=== PATIENT | female | born 1995 | race Caucasian/White ===

== ENCOUNTER 2016-11-26 23:46 | Emergency (ER) | payer OTHER ==
[2016-11-27] MEDS ORDERED: ONDANSETRON 4 MG ORAL DISINTEGRATING TAB (S0181) As Ordered ONE (01:29)
--- NOTE | 2016-11-27 02:03 | EDDOCDS ---
Physician Documentation [facility] Name: Joselyn Castro Age: 21 yrs Sex: Female : 1995 Arrival Date: 11/26/2016 Time: 23:46 Bed I5 / M5 Private MD: Other - Complete Info On Cds Disposition: 11/27/16 01:55 Discharged to Home/Self Care. Impression: Vomiting. - Condition is Stable. - Discharge Instructions: Nausea and Vomiting. - Prescriptions for Prilosec 20 mg Oral Capsule - take 1 capsule by ORAL route once daily; 10 capsule. ZOFRAN ODT 4 mg - dissolve 1 tablet by ORAL route 4 times per day As needed do not chew, do not swallow whole; 10 tablet. - Medication Reconciliation, Local Pharmacy Hours form. - Follow up: Angelica Ho [facility]; When: 1 - 2 days; Reason: Recheck today's complaints, Continuance of care. - Problem is new. - Symptoms have improved. - Notes: USE MEDICATION INSTRUCTED, FOLLOW UP WITH YOUR DOCTOR IN 1-2 DAYS, RETURN TO THE ER IF THE SYMPTOMS WORSEN OR BECOME CONCERNING Historical: - Allergies: No known drug Allergies; - Home Meds: 1. none - PMHx: Depression; - PSHx: Shoulder Arthroplasty. Right; - Social history: Smoking status: Patient states was never smoker of tobacco. No barriers to communication noted, The patient speaks fluent Monegasque, Speaks appropriately for age. - Family history: Not pertinent. - : The pt / caregiver states he / she is not on anticoagulants. Home medication list is obtained from the patient. - Exposure Risk Screening:: None identified. 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 7 in. (170.18 cm) (R); Pain 4/10; 11/27 02:00 BP 110 / 58; Pulse 70; Resp 18; Temp 99.0(O); Pulse Ox 99% on R/A; Pain 0/10; cristal 11/26 23:47 Body Mass Index 18.79 (54.43 kg, 170.18 cm) gr2 MDM: 01:26 UCG by Nursing ordered. ck7 01:26 Ondansetron ODT Oral Disintegrating Tablet 4 mg PO once ordered. ck7 01:26 Fluid Challenge ordered. ck7 01:36 Financial registration complete. pm4 01:44 [facility] Payment Agreement was scanned into [employer] and attached to record. pm4 Point of Care Testing: Urine : 01:51 hCG Reading: Negative; Control Reading: Positive; ajs Ranges: Administered Medications: 01:34 Drug: Ondansetron ODT 4 mg [ondansetron 4 mg disintegrating tablet (1 tabs)] Route: PO; cristal Signatures: Marc Dowell, ROBERTO-C RPA-Cck7 Juan Jose SalinasRN RN Hortensia SolaresRN RN nn1 Don Leong, Reg Reg pm4 The chart was reviewed and I authenticate all verbal orders and agree with the evaluation and treatment provided.Attachments: 01:44 [facility] Payment Agreement pm4 MTDD
--- NOTE | 2016-11-27 02:03 | EDDOCDS ---
Nurse's Notes [facility] Name: Joselyn Castro Age: 21 yrs Sex: Female : 1995 Arrival Date: 11/26/2016 Time: 23:46 Bed I5 / M5 Private MD: Other - Complete Info On Cds Diagnosis: Vomiting Presentation: 11/26 23:54 Presenting complaint: Patient states: vomiting since 1600. Reports 5 episodes of nn1 vomiting, last episode on way to ED. States she had fever of 100.0 earlier. Adult Sepsis Screening: The patient does not have new or worsening altered mentation. Patient's respiratory rate is less than 22. Systolic blood pressure is greater than 100. Patient has a qSOFA score of 0- Negative Sepsis Screen. Suicide/Homicide risk assessment- the patient denies having any suicidal and/or homicidal ideations and does not present with any other emotional, behavioral or mental health complaints. 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 Transition of care: patient was not received from another setting of care. 23:54 Acuity: TASNEEM Level 3 nn1 23:54 Method Of Arrival: Walkin/Carried/Asstd nn1 Triage Assessment: 23:56 General: Appears in no apparent distress, comfortable, Behavior is appropriate for age, nn1 cooperative. Pain: Location: abdomen Pain currently is 5 out of 10 on a pain scale. Pain began 1600. HIV screening NA for this visit Offered previously. Neurological: Level of Consciousness is awake, alert, obeys commands. Respiratory: Airway is patent Respiratory effort is even, unlabored, Respiratory pattern is regular, symmetrical. GI: Reports cramping, nausea, vomiting. Derm: Skin is pink, warm & dry. 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 none - PMHx: Depression; - PSHx: Shoulder Arthroplasty. Right; - Social history: Smoking status: Patient states was never smoker of tobacco. No barriers to communication noted, The patient speaks fluent [place], Speaks appropriately for age. - Family history: Not pertinent. - : The pt / caregiver states he / she is not on anticoagulants. Home medication list is obtained from the patient. - Exposure Risk Screening:: None identified. Screenin:37 Screening information is obtained from the patient. Fall risk: No risks identified. jmb Assistance ADL's: requires no assistance with activities of daily living. Abuse/DV Screen: The patient / caregiver reports he/she is: not in a situation that causes fear, pain or injury. Nutritional screening: No deficits noted. Advance Directives: Currently, there is no health care proxy. There is no active DNR order. There is no living will. There is no Power of Fur Coat Sewer. home support is adequate. Assessment: 01:34 General: Appears in no apparent distress, Behavior is appropriate for age, cooperative. jmb Neurological: Level of Consciousness is awake, alert, obeys commands, Oriented to person, place, time, Computer Support Technician are equal bilaterally Speech is normal, Facial symmetry appears normal, Facial symmetry: tongue is midline. Cardiovascular: Capillary refill < 3 seconds Heart tones S1 S2 present Pulses are all present. Respiratory: Airway is patent Respiratory effort is even, unlabored, Respiratory pattern is regular, symmetrical, Breath sounds are clear bilaterally. GI: Abdomen is non- distended Bowel sounds present X 4 quads. Abd is soft X 4 quads. Derm: Skin is pink, warm & dry. Musculoskeletal: Range of motion intact in all extremities. 01:34 General: Patient administered Zofran, after placing Zofran in mouth, patient took 16 oz jmb bottle of water and drank it completely. NO nausea or vomiting noted. . 02:00 General: Patient instructed on discharge instructions. Patient asked if there were any b questions regarding discharge, patient stated no. Patient signed discharge instructions. Patient discharged in stable condition. . Vital Signs: 11/26 23:47 BP 114 / 66; Pulse 73; Resp 18 S; Temp 99.6(O); Pulse Ox 98% on R/A; Weight 54.43 kg gr2 (R); Height 5 ft. 7 in. (170.18 cm) (R); Pain 4/10; 11/27 02:00 BP 110 / 58; Pulse 70; Resp 18; Temp 99.0(O); Pulse Ox 99% on R/A; Pain 0/10; jmb 11/26 23:47 Body Mass Index 18.79 (54.43 kg, 170.18 cm) gr2 Vitals: 11/26 23:47 Log In Time: November 26, 2016 at 23:47. gr2 ED Course: 23:46 Patient visited by Sage Spangler. gr2 23:46 Patient moved to Waiting gr2 23:47 Other - Complete Info On Cds is Private Physician. gr2 23:48 Patient visited by Sage Spangler. gr2 23:48 Patient moved to Pre RCE gr2 23:55 Triage Initiated nn1 02/09 01:15 [facility] ck7 01:15 Sergo Juarez MD is Attending Physician. ck7 01:15 Patient visited by Marc Dowell RPA-C. ck7 01:15 Patient moved to I5 / M5 nn1 01:37 Patient visited by Juan Jose Salinas RN. jmb 01:37 The patient / caregiver is instructed regarding the plan of care and ED course. jmb 01:37 No IV's were initiated during this patient's visit. No procedures done that require jmb assistance. 01:44 [facility] Payment Agreement was scanned into [employer] and attached to record. pm4 01:52 Patient visited by Mi Montoya. ajs 01:55 Angelica oH [facility] is Referral Physician. ck7 Administered Medications: 01:34 Drug: Ondansetron ODT 4 mg [ondansetron 4 mg disintegrating tablet (1 tabs)] Route: PO; jmb Point of Care Testing: Urine : 01:51 hCG Reading: Negative; Control Reading: Positive; ajs Ranges: Order Results: There are currently no results for this order. Outcome: 01:55 Discharge ordered by Provider. ck7 02:00 Discharge Assessment: Patient awake, alert and oriented x 3. No cognitive and/or jmb functional deficits noted. Patient verbalized understanding of disposition instructions. Patient awake and alert. obeys commands, Oriented to person, place and time. Patient verbalized understanding of disposition instructions. Patient has no functional deficits. patient administered narcotics - no. The following High Risk Discharge criteria are identified: None. Discharged to home ambulatory, with friend. Condition: stable Condition: improved. Discharge instructions given to patient, Instructed on discharge instructions, follow up and referral plans. medication usage, Demonstrated understanding of instructions, medications, Pt was receptive of discharge instructions/ teaching. Prescriptions given X 2. No special radiology studies were completed. Property sent home with patient. 02:02 Patient left the ED. cristal Signatures: Mi Montoya Christopher, ROBERTO-C RPA-Cck7 Sage Spangler gr2 Juan Jose Salinas RN RN Hortensia Solares RN RN nn1 Don Leong, Reg Reg pm4 MTDD
--- NOTE | 2016-11-29 03:03 | EDDOCDS ---
Physician Documentation [facility] Name: Joselyn Castro Age: 21 yrs Sex: Female : 1995 Arrival Date: 11/26/2016 Time: 23:46 Bed I5 / M5 Private MD: Other - Complete Info On Cds Disposition: 11/27/16 01:55 Discharged to Home/Self Care. Impression: Vomiting. - Condition is Stable. - Discharge Instructions: Nausea and Vomiting. - Prescriptions for Prilosec 20 mg Oral Capsule - take 1 capsule by ORAL route once daily; 10 capsule. ZOFRAN ODT 4 mg - dissolve 1 tablet by ORAL route 4 times per day As needed do not chew, do not swallow whole; 10 tablet. - Medication Reconciliation, Local Pharmacy Hours form. - Follow up: Angelica Ho [facility]; When: 1 - 2 days; Reason: Recheck today's complaints, Continuance of care. - Problem is new. - Symptoms have improved. - Notes: USE MEDICATION INSTRUCTED, FOLLOW UP WITH YOUR DOCTOR IN 1-2 DAYS, RETURN TO THE ER IF THE SYMPTOMS WORSEN OR BECOME CONCERNING Historical: - Allergies: No known drug Allergies; - Home Meds: 1. none - PMHx: Depression; - PSHx: Shoulder Arthroplasty. Right; - Social history: Smoking status: Patient states was never smoker of tobacco. No barriers to communication noted, The patient speaks fluent Cymro, Speaks appropriately for age. - Family history: Not pertinent. - : The pt / caregiver states he / she is not on anticoagulants. Home medication list is obtained from the patient. - Exposure Risk Screening:: None identified. 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 7 in. (170.18 cm) (R); Pain 4/10; 11/27 02:00 BP 110 / 58; Pulse 70; Resp 18; Temp 99.0(O); Pulse Ox 99% on R/A; Pain 0/10; cristal 11/26 23:47 Body Mass Index 18.79 (54.43 kg, 170.18 cm) gr2 MDM: 01:26 UCG by Nursing ordered. ck7 01:26 Ondansetron ODT Oral Disintegrating Tablet 4 mg PO once ordered. ck7 01:26 Fluid Challenge ordered. ck7 01:36 Financial registration complete. pm4 01:44 [facility] Payment Agreement was scanned into [employer] and attached to record. pm4 10:14 T-Sheet-- Draft Copy was scanned into [employer] and attached to record. chucho Point of Care Testing: Urine : 01:51 hCG Reading: Negative; Control Reading: Positive; ajs Ranges: Administered Medications: 01:34 Drug: Ondansetron ODT 4 mg [ondansetron 4 mg disintegrating tablet (1 tabs)] Route: PO; cristal Signatures: Kimi Bolaños, Reg Reg gb Marc Dowell, EVARISTOC RPA-Cck7 Juan Jose SalinasRN RN Hortensia Solares,RN RN nn1 Don Leong, Reg Reg pm4 The chart was reviewed and I authenticate all verbal orders and agree with the evaluation and treatment provided.Attachments: 01:44 [facility] Payment Agreement pm4 10:14 T-Sheet-- Draft Copy gb Chart Complete MTDD
--- NOTE | 2016-11-29 03:03 | EDDOCDS ---
Nurse's Notes [facility] Name: Joselyn Castro Age: 21 yrs Sex: Female : 1995 Arrival Date: 11/26/2016 Time: 23:46 Bed I5 / M5 Private MD: Other - Complete Info On Cds Diagnosis: Vomiting Presentation: 11/26 23:54 Presenting complaint: Patient states: vomiting since 1600. Reports 5 episodes of nn1 vomiting, last episode on way to ED. States she had fever of 100.0 earlier. Adult Sepsis Screening: The patient does not have new or worsening altered mentation. Patient's respiratory rate is less than 22. Systolic blood pressure is greater than 100. Patient has a qSOFA score of 0- Negative Sepsis Screen. Suicide/Homicide risk assessment- the patient denies having any suicidal and/or homicidal ideations and does not present with any other emotional, behavioral or mental health complaints. 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 Transition of care: patient was not received from another setting of care. 23:54 Acuity: TASNEEM Level 3 nn1 23:54 Method Of Arrival: Walkin/Carried/Asstd nn1 Triage Assessment: 23:56 General: Appears in no apparent distress, comfortable, Behavior is appropriate for age, nn1 cooperative. Pain: Location: abdomen Pain currently is 5 out of 10 on a pain scale. Pain began 1600. HIV screening NA for this visit Offered previously. Neurological: Level of Consciousness is awake, alert, obeys commands. Respiratory: Airway is patent Respiratory effort is even, unlabored, Respiratory pattern is regular, symmetrical. GI: Reports cramping, nausea, vomiting. Derm: Skin is pink, warm & dry. 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 none - PMHx: Depression; - PSHx: Shoulder Arthroplasty. Right; - Social history: Smoking status: Patient states was never smoker of tobacco. No barriers to communication noted, The patient speaks fluent [place]ese, Speaks appropriately for age. - Family history: Not pertinent. - : The pt / caregiver states he / she is not on anticoagulants. Home medication list is obtained from the patient. - Exposure Risk Screening:: None identified. Screenin:37 Screening information is obtained from the patient. Fall risk: No risks identified. jmb Assistance ADL's: requires no assistance with activities of daily living. Abuse/DV Screen: The patient / caregiver reports he/she is: not in a situation that causes fear, pain or injury. Nutritional screening: No deficits noted. Advance Directives: Currently, there is no health care proxy. There is no active DNR order. There is no living will. There is no Power of Director Advertising. home support is adequate. Assessment: 01:34 General: Appears in no apparent distress, Behavior is appropriate for age, cooperative. 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 Cardiovascular: Capillary refill < 3 seconds Heart tones S1 S2 present Pulses are all present. Respiratory: Airway is patent Respiratory effort is even, unlabored, Respiratory pattern is regular, symmetrical, Breath sounds are clear bilaterally. GI: Abdomen is non- distended Bowel sounds present X 4 quads. Abd is soft X 4 quads. Derm: Skin is pink, warm & dry. Musculoskeletal: Range of motion intact in all extremities. 01:34 General: Patient administered Zofran, after placing Zofran in mouth, patient took 16 oz jmb bottle of water and drank it completely. NO nausea or vomiting noted. . 02:00 General: Patient instructed on discharge instructions. Patient asked if there were any b questions regarding discharge, patient stated no. Patient signed discharge instructions. Patient discharged in stable condition. . Vital Signs: 11/26 23:47 BP 114 / 66; Pulse 73; Resp 18 S; Temp 99.6(O); Pulse Ox 98% on R/A; Weight 54.43 kg gr2 (R); Height 5 ft. 7 in. (170.18 cm) (R); Pain 4/10; 11/27 02:00 BP 110 / 58; Pulse 70; Resp 18; Temp 99.0(O); Pulse Ox 99% on R/A; Pain 0/10; jmb 11/26 23:47 Body Mass Index 18.79 (54.43 kg, 170.18 cm) gr2 Vitals: 11/26 23:47 Log In Time: November 26, 2016 at 23:47. gr2 ED Course: 23:46 Patient visited by Sage Spangler. gr2 23:46 Patient moved to Waiting gr2 23:47 Other - Complete Info On Cds is Private Physician. gr2 23:48 Patient visited by Sage Spangler. gr2 23:48 Patient moved to Pre RCE gr2 23:55 Triage Initiated nn1 02/09 01:15 [facility] ck7 01:15 Sergo Juarez MD is Attending Physician. ck7 01:15 Patient visited by Marc Dowell RPA-C. ck7 01:15 Patient moved to I5 / M5 nn1 01:37 Patient visited by Juan Jose Salinas RN. jmb 01:37 The patient / caregiver is instructed regarding the plan of care and ED course. jmb 01:37 No IV's were initiated during this patient's visit. No procedures done that require jmb assistance. 01:44 [facility] Payment Agreement was scanned into [employer] and attached to record. pm4 01:52 Patient visited by Mi Montoya. ajs 01:55 Angelica Ho [facility] is Referral Physician. ck7 10:14 T-Sheet-- Draft Copy was scanned into [employer] and attached to record. gb Administered Medications: 01:34 Drug: Ondansetron ODT 4 mg [ondansetron 4 mg disintegrating tablet (1 tabs)] Route: PO; jmb Point of Care Testing: Urine : 01:51 hCG Reading: Negative; Control Reading: Positive; ajs Ranges: Order Results: There are currently no results for this order. Outcome: 01:55 Discharge ordered by Provider. ck7 02:00 Discharge Assessment: Patient awake, alert and oriented x 3. No cognitive and/or jmb functional deficits noted. Patient verbalized understanding of disposition instructions. Patient awake and alert. obeys commands, Oriented to person, place and time. Patient verbalized understanding of disposition instructions. Patient has no functional deficits. patient administered narcotics - no. The following High Risk Discharge criteria are identified: None. Discharged to home ambulatory, with friend. Condition: stable Condition: improved. Discharge instructions given to patient, Instructed on discharge instructions, follow up and referral plans. medication usage, Demonstrated understanding of instructions, medications, Pt was receptive of discharge instructions/ teaching. Prescriptions given X 2. No special radiology studies were completed. Property sent home with patient. 02:02 Patient left the ED. cristal Signatures: Kimi Bolaños, Reg Reg gb Mi Montoya Christopher, RPA-C RPA-Cck7 Sage Spangler gr2 Juan Jose Salinas,RN RN Hortensia SolaresRN RN nn1 Don Leong, Reg Reg pm4 Chart Complete MTDD
--- NOTE | 2016-11-29 03:03 | EDDOCDS ---
Physician Documentation Name: Joselyn Castro Age: 21 yrs Sex: Female : 1995 Arrival Date: 11/26/2016 Time: 23:46 Bed I5 / M5 Private MD: Other - Complete Info On Cds Disposition: 11/27/16 01:55 Discharged to Home/Self Care. Impression: Vomiting. - Condition is Stable. - Discharge Instructions: Nausea and Vomiting. - Prescriptions for Prilosec 20 mg Oral Capsule - take 1 capsule by ORAL route once daily; 10 capsule. ZOFRAN ODT 4 mg - dissolve 1 tablet by ORAL route 4 times per day As needed do not chew, do not swallow whole; 10 tablet. - Medication Reconciliation, Local Pharmacy Hours form. - Follow up: Angelica Ho [facility]; When: 1 - 2 days; Reason: Recheck today's complaints, Continuance of care. - Problem is new. - Symptoms have improved. - Notes: USE MEDICATION INSTRUCTED, FOLLOW UP WITH YOUR DOCTOR IN 1-2 DAYS, RETURN TO THE ER IF THE SYMPTOMS WORSEN OR BECOME CONCERNING Historical: - Allergies: No known drug Allergies; - Home Meds: 1. none - PMHx: Depression; - PSHx: Shoulder Arthroplasty. Right; - Social history: Smoking status: Patient states was never smoker of tobacco. No barriers to communication noted, The patient speaks fluent Tuvaluan, Speaks appropriately for age. - Family history: Not pertinent. - : The pt / caregiver states he / she is not on anticoagulants. Home medication list is obtained from the patient. - Exposure Risk Screening:: None identified. 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 7 in. (170.18 cm) (R); Pain 4/10; 11/27 02:00 BP 110 / 58; Pulse 70; Resp 18; Temp 99.0(O); Pulse Ox 99% on R/A; Pain 0/10; cristal 11/26 23:47 Body Mass Index 18.79 (54.43 kg, 170.18 cm) gr2 MDM: 01:26 UCG by Nursing ordered. ck7 01:26 Ondansetron ODT Oral Disintegrating Tablet 4 mg PO once ordered. ck7 01:26 Fluid Challenge ordered. ck7 01:36 Financial registration complete. pm4 01:44 [facility] Payment Agreement was scanned into [employer] and attached to record. pm4 10:14 T-Sheet-- Draft Copy was scanned into [employer] and attached to record. chucho Point of Care Testing: Urine : 01:51 hCG Reading: Negative; Control Reading: Positive; ajs Ranges: Administered Medications: 01:34 Drug: Ondansetron ODT 4 mg [ondansetron 4 mg disintegrating tablet (1 tabs)] Route: PO; cristal Signatures: Kimi Bolaños, Reg Reg gb Marc Dowell, EVARISTOC RPA-Cck7 Juan Jose SalinasRN RN Hortensia Solares,RN RN nn1 Don Leong, Reg Reg pm4 The chart was reviewed and I authenticate all verbal orders and agree with the evaluation and treatment provided.Attachments: 01:44 [facility] Payment Agreement pm4 10:14 T-Sheet-- Draft Copy gb Chart Complete MTDD
== END 2016-11-27 02:02 | disposition home or self-care (01) ==
LOC: M ED 23:46
DX: R11.10 Vomiting, unspecified (principal); F32.9 Major depressive disorder, single episode, unspecified

== ENCOUNTER → 2017-05-21 | Outpatient (CLI) | payer OTHER ==
--- NOTE | 2017-05-22 16:50 | ECHO ---
DATE OF PROCEDURE: 05/21/2017 DATE OF : 1995 AGE: 21 GENDER: Female HEIGHT: 67 inches WEIGHT: 117 pounds BODY SURFACE AREA: 1.61 meters squared OUTPATIENT REFERRING PHYSICIAN: Taina Wayne INDICATION: Abnormal EKG. MEASUREMENTS: 2D Measurements: RV: 2.9 cm LV: 4.6 cm Septum: 0.8 cm Posterior wall: 0.8 cm Aortic root: 2.6 cm LA: 3.0 cm LVEF: 65% DOPPLER MEASUREMENTS: AV: 1.2 m/s LVOT: 0.8 m/s LVOT diameter: 2.1 cm MV-E: 93, A: 48, EA ratio: 1.9 Early mitral deceleration time: 208 ms E-prime: 12, A prime: 8, E/E prime ratio: 8 PV: 0.8 m/s Pulmonary artery acceleration time: 175 ms RVSP: 23 mmHg IVC: 1.5 cm COMMENTS: Normal sinus rhythm without intraventricular conduction disturbance. Normal cardiac chamber sizes, wall thickness and wall motion. Normal appearing mitral valvular apparatus and leaflet excursion with no posterior systolic buckling. Three equal size aortic cusps of normal thickness and cusp separation. Normal aortic root size. No apparent intracardiac mass or pericardial effusion. Color flow Doppler study taken from the parasternal and apical projections showed very mild mitral, trace tricuspid but no aortic insufficiency. Guided continuous wave Doppler of her aortic valve showed a normal peak systolic velocity against LV outflow tract obstruction. Pulsed and continuous wave Doppler of her LV inflow tract taken from the apical four-chamber projection showed normal diastolic filling velocities against mitral stenosis. The filling pattern and her estimated mean left atrial pressure were within normal limits. Pulsed and continuous wave Doppler of her pulmonary trunk showed a normal peak systolic velocity against RV outflow tract obstruction. Her pulmonary artery acceleration time was normal against an elevated pulmonary vascular resistance. Guided continuous wave Doppler of her tricuspid valve allowed our estimation of her right ventricular systolic pressure (within normal limits). Normal IVC size and collapse against an elevated central venous pressure. CONCLUSIONS: Normal appearing echocardiogram/Doppler study.
== END ==
LOC: M CARPUL 08:12
PROVIDERS: ATTEND Physician Assistant
DX: R94.31 Abnormal electrocardiogram [ECG] [EKG] (principal)

== ENCOUNTER → 2017-12-21 | Outpatient (CLI) | payer OTHER | LOC: M RAD 10:37 | DX: R51 Headache (principal) | CPT/HCPCS: 70551 ==

== ENCOUNTER → 2018-01-24 | Outpatient (CLI) | payer OTHER | LOC: M LDO 17:45 | DX: O26.892 Other specified pregnancy related conditions, second trimester (principal); Z3A.19 19 weeks gestation of pregnancy; Z98.890 Other specified postprocedural states ==

== ENCOUNTER 2018-06-02 01:01 | Inpatient (IN) | payer OTHER ==
[2018-06-02] MEDS ORDERED: LR 1,000 ML IV (02:00)
[2018-06-02 02:16] LABS: APPEARANCE, URINE CLOUDY (CLEAR); BACTERIA, URINE AUTO 1+ (NEGATIVE); BILIRUBIN, URINE AUTO NEGATIVE (NEGATIVE); BLOOD, URINE BLOOD 3+ (NEGATIVE); COLOR, URINE YELLOW (YELLOW); GLUCOSE, URINE (UA) AUTO NEGATIVE (NEGATIVE); KETONE, URINE AUTO NEGATIVE (NEGATIVE); LEUKOCYTE ESTERASE, URINE AUTO 3+ (NEGATIVE); MUCUS, URINE SMALL (NEGATIVE); NITRITE, URINE AUTO NEGATIVE (NEGATIVE); PROTEIN, URINE AUTO NEGATIVE (NEGATIVE); RBC, URINE AUTO 50 /HPF (0-3); SPECIFIC GRAVITY URINE AUTO 1.014 (1.002-1.035); SQUAMOUS EPITHELIAL CELL UR AU 4 /HPF (0-6); WBC, URINE AUTO 119 /HPF (0-3)
[2018-06-02] MEDS: LACTATED RINGER'S 1000 ML IV (02:45)
[2018-06-02] MEDS: ceFAZolin SOD 1 GM in D5W MINI-BAG PLUS 50 ML IV ×3 (02:45→18:37)
[2018-06-02] MEDS: BUTORPHANOL 2 MG/ML INJ (J0595) IV (03:07)
[2018-06-02] MEDS: PROMETHAZINE INJ 25 MG/ML VIAL (J2550) IV (03:08)
[2018-06-02] MEDS ORDERED: NALOXONE INJ 0.4 MG/1 ML VIAL (J2310) As Ordered (03:52)
[2018-06-02] MEDS ORDERED: OXYTOCIN 30 UNITS IN 0.9% NaCl 500ML IV BAG (J2590) As Ordered (03:53)
[2018-06-02] MEDS ORDERED: OXYTOCIN DRIP 30 UNITS in APPROPRIATE DILUENT 1 EA IV (04:43)
[2018-06-02] MEDS ORDERED: ACETAMINOPHEN 500 MG TAB PO (04:45)
[2018-06-02] MEDS ORDERED: DIBUCAINE 1% OINTMENT 30GM TOP (04:45)
[2018-06-02] MEDS ORDERED: DOCUSATE SODIUM 100 MG CAP PO (04:45)
[2018-06-02] MEDS ORDERED: MEASLES,MUMPS,RUBELLA VACCINE INJ (MMR-II) (90707) SC (04:45)
[2018-06-02] MEDS ORDERED: RHOGAM 300 MCG (1500 IU) INJ (J2790) IM (04:45)
[2018-06-02] MEDS ORDERED: MOM 30ML SUSPENSION UDC PO (04:45)
[2018-06-02] MEDS ORDERED: ANUSOL HC CREAM 30GM TOP (04:45)
[2018-06-02] MEDS ORDERED: METHYLERGONOVINE MALEATE 0.2 MG TAB PO (04:45)
[2018-06-02] MEDS ORDERED: LACTATED RINGER'S 1000 ML IV (04:45)
[2018-06-02] MEDS ORDERED: IBUPROFEN 800 MG TAB PO (04:45)
[2018-06-02] MEDS ORDERED: OXYTOCIN INJ 10 UNITS/ML VIAL (J2590) IV (04:45)
[2018-06-02 05:40] LABS: HEMATOCRIT 31.7 % (36.0-47.0); HEMOGLOBIN 10.9 g/dl (12.0-15.5); MEAN CORPUSCULAR HEMOGLOBIN 31.6 pg (27.0-33.0); MEAN CORPUSCULAR HGB CONC 34.4 g/dl (32.0-36.5); MEAN CORPUSCULAR VOLUME 91.9 fl (80.0-96.0); PLATELET COUNT, AUTOMATED 198 10^3/uL (150-450); RED BLOOD COUNT 3.45 10^6/uL (4.00-5.40); RED CELL DISTRIBUTION WIDTH 13.1 % (11.5-14.5); WHITE BLOOD COUNT 18.6 10^3/uL (4.0-10.0)
[2018-06-02] MEDS: PRENATAL VITAMINS CHEWABLE TABLET PO (07:45)
[2018-06-03] MEDS: ceFAZolin SOD 1 GM in D5W MINI-BAG PLUS 50 ML IV ×3 (03:30→18:29)
[2018-06-03 06:53] LABS: HEMATOCRIT 32.3 % (36.0-47.0); MEAN CORPUSCULAR HEMOGLOBIN 31.4 pg (27.0-33.0); MEAN CORPUSCULAR HGB CONC 34.1 g/dl (32.0-36.5); MEAN CORPUSCULAR VOLUME 92.3 fl (80.0-96.0); PLATELET COUNT, AUTOMATED 179 10^3/uL (150-450); RED CELL DISTRIBUTION WIDTH 13.2 % (11.5-14.5); WHITE BLOOD COUNT 12.7 10^3/uL (4.0-10.0)
[2018-06-03] MEDS: PRENATAL VITAMINS CHEWABLE TABLET PO (08:15)
[2018-06-03] MEDS ORDERED: OXYTOCIN INJ 10 UNITS/ML VIAL (J2590) As Ordered (17:59)
[2018-06-04] MEDS: ceFAZolin SOD 1 GM in D5W MINI-BAG PLUS 50 ML IV (03:00)
[2018-06-04] MEDS: PRENATAL VITAMINS CHEWABLE TABLET PO (10:27)
[2018-06-04] MEDS: CEPHALEXIN 500 MG CAP PO (10:28)
== END 2018-06-04 14:40 | disposition home or self-care (01) | DRG 775 ==
LOC: M LDO 01:01 → M LDI 03:34 → M OBS 07:03
PROC: 10E0XZZ Delivery of Products of Conception, External Approach (ICD-10-PCS; principal; 2018-06-02)
DX: O62.3 Precipitate labor (principal); O23.43 Unspecified infection of urinary tract in pregnancy, third trimester; Z3A.38 38 weeks gestation of pregnancy; O69.89X0 Labor and delivery complicated by other cord complications, not applicable or unspecified; B96.20 Unspecified Escherichia coli [E. coli] as the cause of diseases classified elsewhere; Z37.0 Single live birth

== ENCOUNTER 2018-08-17 05:48 | Day surgery (SDC) | payer OTHER ==
[2018-08-17] MEDS ORDERED: LIDOCAINE 1% MDV 20ML VIAL SQ (06:00)
[2018-08-17 06:35] LABS: HEMATOCRIT 39.7 % (36.0-47.0); HEMOGLOBIN 13.2 g/dl (12.0-15.5); MEAN CORPUSCULAR HEMOGLOBIN 30.2 pg (27.0-33.0); MEAN CORPUSCULAR HGB CONC 33.2 g/dl (32.0-36.5); MEAN CORPUSCULAR VOLUME 90.8 fl (80.0-96.0); PLATELET COUNT, AUTOMATED 289 10^3/uL (150-450); RED BLOOD COUNT 4.37 10^6/uL (4.00-5.40); RED CELL DISTRIBUTION WIDTH 11.9 % (11.5-14.5); WHITE BLOOD COUNT 7.5 10^3/uL (4.0-10.0)
[2018-08-17] MEDS: LR 1,000 ML IV (06:39)
[2018-08-17 06:47] LABS: CONTROL LINE HCG INT CTR LINE PRESENT; HCG, SERUM QUALITATIVE NEGATIVE (NEGATIVE)
[2018-08-17] MEDS ORDERED: fentaNYL 100 MCG/2 ML INJECTION (J3010) As Ordered (07:00)
[2018-08-17] MEDS ORDERED: MIDAZOLAM INJ 2 MG/2 ML VIAL (J2250) As Ordered (07:00)
[2018-08-17] MEDS ORDERED: PROPOFOL 200 MG/20 ML VIAL As Ordered (07:00)
[2018-08-17] MEDS ORDERED: dexameTHASONE 4 MG/ML 1ML VIAL (J1100) As Ordered ×2 (07:00)
[2018-08-17] MEDS ORDERED: ONDANSETRON 4MG/2ML VIAL (J2405) As Ordered (07:00)
[2018-08-17] MEDS ORDERED: LIDOCAINE 2% INJ 100 MG/5 ML SDV (FOR ANES.) As Ordered (07:00)
[2018-08-17] MEDS ORDERED: KETOROLAC 60 MG/2 ML VIAL (J1885) As Ordered (07:00)
[2018-08-17] MEDS: IODINE STRONG SOLN 15 ML BTL As Ordered (08:35)
[2018-08-17] MEDS: LIDOCAINE W/EPINEPHRINE 1% 20ML VIAL As Ordered (08:46)
== END 2018-08-17 10:01 | disposition home or self-care (01) ==
LOC: M SDC 05:48
DX: D06.9 Carcinoma in situ of cervix, unspecified (principal); Z91.018 Allergy to other foods
CPT/HCPCS: 57522

== ENCOUNTER 2019-08-05 06:26 | Outpatient (CLI) | payer OTHER ==
[~2019-08-05] VITALS: Ht 172.7 cm; Wt 62.3 kg
[~2019-08-05 06:26] MED LIST: COLA100C5 PO; DIBU1OIN TOP; IBUP-1114 PO; MAPA500T2 PO; MECL1CHW PO; PRENTAB9 PO; UNIS25TA3 PO
[2019-08-05 06:43] VITALS: BP 121/73
[2019-08-05] MEDS ORDERED: BUTA-198 PO (06:47)
[2019-08-05] MEDS ORDERED: BETAMETHASONE SOLUSPAN 6MG/ML INJ 5ML (J0702) IM ONE (07:15)
--- NOTE | 2019-08-05 08:00 | IPNPDOC ---
Text Note Date of Service The patient was seen on 08/05/19. NOTE Patient is a 23 yo @ 30+5wks gestation with history of shortened cervix presented to l&d with spotting on wipe that started this AM. no recent coitus. she is on daily vaginal progesterone suppository. she has not used it for the last couple days due to vaginal irritation. denies abnormal vaginal discharge. vitals:normal NAD ABD: gravid, soft, nt le: no edema/erythema/tenderness speculum exam: brown discharge, no active bleeding cervix visually 1-2cm, thin with bulging bag. a/p patient is 30+5wks with cervical insufficiency. discuss with patient regarding concern for possible progression to labor and delivery. Baby needs level III NICU for optimal care. Recommend transferring to [facility] for higher level of care. Risks of possible delivery during transport discussed with patient. patient expresses understanding and desires to move forward with transport. Report given to Dr. Alvarado, accepting physician at [facility]. DO Bri VS,Luly, I+O VS, Luly, I+O Vital Signs Date Time Temp Pulse Resp B/P (MAP) Pulse Ox O2 Delivery O2 Flow Rate FiO2 08/05/19 06:43 98.2 81 18 121/73 (89) CHRISTOPHER PARISI DO Aug 05, 2019 08:00
== END 2019-08-05 08:30 | disposition short-term general hospital (02) ==
LOC: M LDO 06:26
PROVIDERS: ATTEND Obstetrics & Gynecology
DX: O26.853 Spotting complicating pregnancy, third trimester (principal); O26.873 Cervical shortening, third trimester; Z3A.30 30 weeks gestation of pregnancy
CPT/HCPCS: 59025; 96372; G0378; G0463; J0702

== ENCOUNTER 2019-08-10 12:01 | Inpatient (IN) | payer OTHER ==
[~2019-08-10] VITALS: Ht 170.2 cm; Wt 59.3 kg
[~2019-08-10 12:01] MED LIST changes: +BUTA-198 PO
[2019-08-10] MEDS ORDERED: OXYC-517 PO (12:16)
[2019-08-10] MEDS ORDERED: ACET1TAB55 PO (12:16)
[2019-08-10] MEDS ORDERED: ONDANSETRON 4MG/2ML VIAL (J2405) IV ONE (12:30)
[2019-08-10] MEDS ORDERED: MORPHINE 4 MG/ML 1ML VIAL/SYRINGE (J2270) IV ONE (12:30)
[2019-08-10] MEDS ORDERED: NS 1,000 ML IV ONE (12:30)
[2019-08-10 13:05] LABS: BASO # 0.1 10^3/uL (0.0-0.2); BASO % 0.7 % (0.0-1.0); EOS # 0.1 10^3/uL (0.0-0.5); EOS % 1.2 % (0.0-3.0); HEMOGLOBIN 12.3 g/dl (12.0-15.5); LYMPH # 0.7 10^3/uL (1.5-5.0); LYMPH % 7.8 % (24.0-44.0); MEAN CORPUSCULAR HEMOGLOBIN 31.4 pg (27.0-33.0); MEAN CORPUSCULAR HGB CONC 34.2 g/dl (32.0-36.5); MEAN CORPUSCULAR VOLUME 91.8 fl (80.0-96.0); MONO # 1.2 10^3/uL (0.0-0.8); NEUTROPHILS # 7.2 10^3/uL (1.5-8.5); NEUTROPHILS % 75.6 % (36.0-66.0); PLATELET COUNT, AUTOMATED 427 10^3/uL (150-450); RED BLOOD COUNT 3.92 10^6/uL (4.00-5.40); WHITE BLOOD COUNT 9.5 10^3/uL (4.0-10.0)
[2019-08-10 13:12] LABS: ALBUMIN 2.3 GM/DL (3.2-5.2); ALT/SGPT 18 U/L (12-78); BILIRUBIN,DIRECT 0.2 MG/DL (0.0-0.2); BILIRUBIN,TOTAL 0.5 MG/DL (0.2-1.0); BLOOD UREA NITROGEN 11 MG/DL (7-18); CALCIUM LEVEL 8.3 MG/DL (8.5-10.1); CARBON DIOXIDE LEVEL 20 MEQ/L (21-32); CHLORIDE LEVEL 108 MEQ/L (98-107); CREATININE FOR GFR 0.52 MG/DL (0.55-1.30); GLOMERULAR FILTRATION RATE > 60.0 (>60); GLUCOSE, FASTING 107 MG/DL (70-100); LIPASE 640 U/L (73-393); SODIUM LEVEL 138 MEQ/L (136-145)
[2019-08-10] MEDS ORDERED: ISOVUE-370 76% 100ML VIAL (Q9967) As Ordered ONE (13:30)
--- NOTE | 2019-08-10 15:20 | REP ---
CT ABDOMEN AND PELVIS WITH IV CONTRAST: TECHNIQUE: Axial contrast enhanced images from the lung bases to the pubic symphysis using 100 mL Isovue 370 intravenous contrast material with multiplanar reformations. Visualized lung bases demonstrate mild bibasilar atelectatic change. The liver, spleen, adrenals, pancreas and kidneys are unremarkable. There is no abdominal aortic aneurysm. There is no adenopathy. There is diffuse distention of large and small bowel, filled with air and fluid, most consistent with a generalized ileus. There is mild diffuse free fluid throughout the abdomen and pelvis. No bowel thickening is seen. Uterus is enlarged and heterogeneous, status post section four days ago. Mild normal amount of postsurgical air is seen in the anterior wall of the pelvis and anterior to the bladder and uterus. The urinary bladder is not well distended and not well evaluated. IMPRESSION: Very mild bibasilar atelectatic changes. Diffuse small and large bowel distention compatible with generalized ileus. Mild diffuse free fluid throughout the abdomen and pelvis. There is a normal amount of postsurgical air in the anterior pelvic wall soft tissues and also anterior to the uterus and bladder. Electronically Signed by Dimas Parra MD 08/12/2019 12:55 A
[2019-08-10] MEDS ORDERED: METOCLOPRAMIDE INJ 10MG/2ML VIAL (J2765) IV PRN (15:30)
[2019-08-10 15:58] LABS: AMYLASE 237 U/L (25-115)
[2019-08-10] MEDS ORDERED: ACETAMINOPHEN *IV* 1,000 MG in IV 1 EA IV ONE (16:00)
[2019-08-10] MEDS ORDERED: BISACODYL ENEMA 10 MG/30 ML PR ONE (16:00)
[2019-08-10] MEDS ORDERED: LR 1,000 ML IV ONE (16:00)
--- NOTE | 2019-08-10 16:18 | HPEPDOC ---
General Date of Admission Aug 10, 2019 at 14:51 Date of Service: Aug 10, 2019 Attending Physician: CHRISTOPHER PARISI DO Chief Complaint The patient is a 23-year-old s/p PLTCD on POD #4 presents to ED with concern for obstipation since surgery and po intolerance since this AM. Patient report having abdominal discomfort and pain that is worsening. This morning she tried to drink water and had emesis. She has not been having an appetite since her section. She has not passed gas since after surgery. Last BM was 6 days ago. She usually have BM daily. denies fever/hdez. She is able to urinate without problem. Patient has been taking tylenol and oxycodone for pain. She has allergy to ibuprofen. Baby currently in NICU at [facility] for prematurity. Source: Patient Exam Limitations: No limitations Home Medications Scheduled No.137/Iron/Folic Acd ( Vitamin Tablet) 1 Tab Tab, 1 TAB PO DAILY, (Reported) Scheduled PRN Acetaminophen (Acetaminophen) 325 Mg Tablet, 650 MG PO Q6H PRN for PAIN, (Reported) Butalb/Acetaminophen/Caffeine (Hqgtuy-Txixzgqb-Vbyq 50-325-40) 1 Each Tablet, 1 TAB PO PRN PRN for HEADACHE, (Reported) Oxycodone HCl (Oxycodone HCl) 5 Mg Tablet, 5 MG PO Q4H PRN for PAIN, (Reported) Allergies Coded Allergies: ibuprofen (Verified Allergy, Unknown, FACIAL SWELLING, 08/10/19) onion (Verified Allergy, Unknown, RASH, 08/10/19) Past Medical History Medical History denies Surgical History shoulder surgery, LEEP, section Social History * Smoker: Denies Alcohol: Denies Drugs: denies Psychosocial History: No pertinent psych hx A-FIB/CHADSVASC A-FIB History Current/History of A-Fib/PAF?: No Current PO Anticoag Therapy: No Review of Systems Gastrointestinal: Reports: Nausea, Vomiting, Abdominal Pain, Constipation Physical Examination General Exam: Positive: Alert, No Acute Distress ENT Exam: Positive: Atraumatic Neck Exam: Positive: Supple Chest Exam: Positive: Clear to auscultation, Normal air movement; Negative: Rales, Rhonchi, Wheezing, Diminished, Other Heart Exam: Positive: Rate Normal, Normal S1, Normal S2; Negative: Tachycardic, Bradycardic, Regular Rhythm, Irregular Rhythm, Gallops , Murmurs, Rubs, Other Abdomen Exam: Positive: BS Hypoactive (distended, tympanic, diffuse tender to palpation, +BS, pfannenstiel incision intact with basilia, no erythema/edema) Extremity Exam: Positive: Normal pulses; Negative: Clubbing, Cyanosis, Tenderness, Swelling, Other Vital Signs Vital Signs Date Time Temp Pulse Resp B/P (MAP) Pulse Ox O2 Delivery O2 Flow Rate FiO2 08/10/19 15:00 98.0 85 18 118/76 (90) 99 08/10/19 13:18 Room Air Laboratory Data Labs 24H Laboratory Tests 2 08/10/19 12:28: Immature Granulocyte % (Auto) 1.7, Neutrophils (%) (Auto) 75.6H, Lymphocytes (%) (Auto) 7.8L, Monocytes (%) (Auto) 13.0H, Eosinophils (%) (Auto) 1.2, Basophils (%) (Auto) 0.7, Neutrophils # (Auto) 7.2, Lymphocytes # (Auto) 0.7L, Monocytes # (Auto) 1.2H, Eosinophils # (Auto) 0.1, Basophils # (Auto) 0.1, Nucleated Red Blood Cells % (auto) 0.0, Anion Gap 10, Glomerular Filtration Rate > 60.0, Calcium Level 8.3L, Total Bilirubin 0.5, Direct Bilirubin 0.2, Aspartate Amino Transf (AST/SGOT) 8, Alanine Aminotransferase (ALT/SGPT) 18, Alkaline Phosphatase 177H, Total Protein 6.0L, Albumin 2.3L, Albumin/Globulin Ratio 0.62L, Lipase 640H 08/10/19 12:43: Lactic Acid Level 0.7 08/10/19 14:36: Urine Color YELLOW, Urine Appearance CLEAR, Urine pH 6.0, Urine Specific [place] >1.060H, Urine Protein 2+H, Urine Glucose (UA) NEGATIVE, Urine Ketones 2+H, Urine Blood 2+H, Urine Nitrite NEGATIVE, Urine Bilirubin NEGATIVE, Urine Urobilinogen 0.2, Urine Leukocyte Esterase TRACEH, Urine WBC (Auto) 14H, Urine RBC (Auto) 17H, Urine Hyaline Casts (Auto) 0, Urine Bacteria (Auto) NEGATIVE, Urine Squamous Epithelial Cells 4, Urine Amorphous Sediment SMALLH, Urine Mucus (Auto) SMALL, Urine Sperm (Auto) CBC/BMP Laboratory Tests 08/10/19 12:28 Microbiology Microbiology 08/10/19 Urine Culture, Received Pending 08/10/19 Blood Culture, Received Pending 08/10/19 Blood Culture, Received Pending RAD Interpretation STUDY: ct abdomen Rad Actions: Report Reviewed Assessment/Plan patient is a 23 yo POD #4 with s/s concerning for ileus. noted elevated lipase though CT scan showed normal pancreas and gallbladder. Admit to [facility] for presumed post operative ileus and obstipation. NPO, NG tube if persistent emesis or severe abdominal discomfort from distension bolus 1L LR then 125cc/hr maintenance while npo acetaminophen IV for pain management reglan prn emesis enema pr to help with constipation get amylase today repeat labs in AM encourage ambulation SCDs while in bed reassess to transition to clears in AM. DO Bri Plan / VTE VTE Prophylaxis Ordered?: Yes VTE Exclusion Pharmacological: At Low Risk for VTE Plan IVF: Initiate Diet: Make NPO Activity: Continue Current, Encourage Ambulation Medications: Change to IV Diagnostics: Check Labs (amylase), Repeat Labs in AM Anticipated Discharge: Home CHRISTOPHER PARISI DO Aug 10, 2019 16:18
[2019-08-10 17:20] VITALS: BP 117/79
[2019-08-10] MEDS ORDERED: ACETAMINOPHEN *IV* 1,000 MG in IV 1 EA IV SCH (18:00)
[2019-08-10] MEDS: LR 1,000 ML IV SCH (19:06)
[2019-08-10] MEDS: ACETAMINOPHEN *IV* 1,000 MG in IV 1 EA IV SCH (21:25)
[2019-08-10 22:00] VITALS: BP 116/78
[2019-08-11] MEDS: LR 1,000 ML IV SCH ×4 (01:09→17:18)
[2019-08-11 02:00] VITALS: BP 120/72
[2019-08-11] MEDS: ACETAMINOPHEN *IV* 1,000 MG in IV 1 EA IV SCH ×4 (02:51→21:00)
[2019-08-11 06:00] VITALS: BP 119/83
[2019-08-11 06:51] LABS: BASO # 0.1 10^3/uL (0.0-0.2); BASO % 0.6 % (0.0-1.0); EOS # 0.3 10^3/uL (0.0-0.5); EOS % 3.7 % (0.0-3.0); HEMATOCRIT 29.7 % (36.0-47.0); LYMPH # 1.4 10^3/uL (1.5-5.0); LYMPH % 17.6 % (24.0-44.0); MEAN CORPUSCULAR HEMOGLOBIN 31.4 pg (27.0-33.0); MEAN CORPUSCULAR VOLUME 92.2 fl (80.0-96.0); MONO # 1.1 10^3/uL (0.0-0.8); MONO % 13.2 % (0.0-5.0); NEUTROPHILS # 5.1 10^3/uL (1.5-8.5); NEUTROPHILS % 62.4 % (36.0-66.0); PLATELET COUNT, AUTOMATED 328 10^3/uL (150-450); RED BLOOD COUNT 3.22 10^6/uL (4.00-5.40); WHITE BLOOD COUNT 8.1 10^3/uL (4.0-10.0)
[2019-08-11 06:57] LABS: HEMOGLOBIN 10.1 g/dl (12.0-15.5)
[2019-08-11 07:16] LABS: ALBUMIN 1.7 GM/DL (3.2-5.2); ALT/SGPT 11 U/L (12-78); AMYLASE 220 U/L (25-115); BILIRUBIN,TOTAL 0.3 MG/DL (0.2-1.0); BLOOD UREA NITROGEN 9 MG/DL (7-18); CALCIUM LEVEL 7.9 MG/DL (8.5-10.1); CARBON DIOXIDE LEVEL 21 MEQ/L (21-32); CHLORIDE LEVEL 109 MEQ/L (98-107); CREATININE FOR GFR 0.42 MG/DL (0.55-1.30); GLOMERULAR FILTRATION RATE > 60.0 (>60); GLUCOSE, FASTING 97 MG/DL (70-100); LIPASE 890 U/L (73-393); POTASSIUM SERUM 3.4 MEQ/L (3.5-5.1); SODIUM LEVEL 139 MEQ/L (136-145); TOTAL PROTEIN 5.1 GM/DL (6.4-8.2)
--- NOTE | 2019-08-11 07:25 | IPNPDOC ---
Text Note Date of Service The patient was seen on 08/11/19. NOTE The patient is a 23-year-old s/p PLTCD on 19OCT POD #5 admitted for pre sumed ileus HD #2. patient report feeling much improved today. She was able to sleep last night. She had 3 BM after enema. She is passing flatus. urinating without problem. Pain controlled with IV acetaminophen alone. She does not feel hungry at this time. denies sweats/chills. Plans on BF. all: ibuprofen Vitals: reviewed, normal NAD, laying in bed cta s w/r/r S1S2 s m/g/c abd: nd, soft, mild tenderness around incision site, incision intact with stables. LE: no erythema/edema/tenderness labs: pending a/p patient POD #5, HD #2 with ileus, resolving. lipase elevated on admission co ncerning for acute pancreatitis, labs this AM is pending. Will wait for patient to have an appetite and starts back on clear liquid diet. will start on PO meds this AM. Continue with IV acetaminophen for pain until patient is tolerating po. encourage ambulation and breast pumping. VS,Fishbone, I+O VS, Fishbone, I+O Laboratory Tests 08/10/19 12:28 08/11/19 05:50 Vital Signs Date Time Temp Pulse Resp B/P (MAP) Pulse Ox O2 Delivery O2 Flow Rate FiO2 08/11/19 06:00 98.4 87 16 119/83 (95) 99 08/11/19 02:00 Room Air I&O- Last 24 Hours up to 6 AM 08/11/19 06:00 Intake Total 4276.67 ml Output Total 400 ml Balance 3876.67 ml CHRISTOPHER PARISI DO Aug 11, 2019 07:25
[2019-08-11] MEDS ORDERED: INFLUENZA QUADRIVALENT PF VACCINE 0.5ML SYRINGE (90686) IM ONE (09:00)
[2019-08-11 10:00] VITALS: BP 123/80
[2019-08-11] MEDS ORDERED: KCL 40MEQ IN D5/NS 1000ML 1,000 ML IV SCH (10:00)
--- NOTE | 2019-08-11 12:17 | IPNPDOC ---
Text Note Date of Service The patient was seen on 08/11/19. NOTE The patient is a 23-year-old s/p PLTCD on POD #5 admitted for pre sumed ileus HD #2. patient report feeling much improved today. She now reports total of 5 bowel movements since admission. She is passing flatus. urinating without problem. Pain controlled with IV acetaminophen alone. She has been ambulating around the room, plan for ambulation in halls when her gets here. She denies any abdominal pain, reports bloating much better. No nausea/emesis today. She reports she is starting to feel a little bit hungry and feels ready to try clears. all: ibuprofen Vitals: reviewed, normal NAD, laying in bed abd: nd, soft, mild tenderness around incision site, incision intact with stables. Hypoactive bowel sounds. LE: no erythema/edema/tenderness a/p patient POD #5, HD #2 with ileus, resolving. lipase elevated on admission concerning for acute pancreatitis, labs this AM continues to uptrend, however, patient without epigastric pain. Will resume clear liquid diet at this time and reassess this afternoon. VS,Fishbone, I+O VS, Fishbone, I+O Laboratory Tests 08/10/19 12:28 08/11/19 05:50 Vital Signs Date Time Temp Pulse Resp B/P (MAP) Pulse Ox O2 Delivery O2 Flow Rate FiO2 08/11/19 06:00 98.4 87 16 119/83 (95) 99 08/11/19 02:00 Room Air I&O- Last 24 Hours up to 6 AM 08/11/19 06:00 Intake Total 4276.67 ml Output Total 400 ml Balance 3876.67 ml Frances Terrell MD Aug 11, 2019 12:17
[2019-08-11 14:00] VITALS: BP 128/80
--- NOTE | 2019-08-11 18:01 | IPNPDOC ---
Text Note Date of Service The patient was seen on 08/11/19. NOTE The patient is a 23-year-old s/p PLTCD on 19OCT POD #5 admitted for pre sumed ileus HD #2. This evening, patient much improved. She was ambulating in the halls today. She had clear tray for lunch, was able to eat 1 1/2 cups of jello and entire cup of broth. No epigastric pain. No nausea/vomiting. Patient reports continued BMs, now soft formed stool. She reports feeling very hungry now, feels ready for regular diet. all: ibuprofen Vitals: reviewed, normal NAD, laying in bed abd: nd, soft, mild tenderness around incision site, incision intact with stables. Return of normal bowel sounds noted x4 quadrants. No epigastric tenderness. LE: no erythema/edema/tenderness a/p patient POD #5, HD #2 with ileus, resolving. lipase elevated on admission concerning for acute pancreatitis, labs this AM continues to up trend, however, patient without epigastric pain. Will repeat Amylase/Lipase in the morning. Now with return of bowel sounds. Will order regular diet for dinner and reassess in AM. Will plan to start Miralax regimen in AM. VS,Fishbone, I+O VS, Fishbone, I+O Laboratory Tests 08/11/19 05:50 Vital Signs Date Time Temp Pulse Resp B/P (MAP) Pulse Ox O2 Delivery O2 Flow Rate FiO2 08/11/19 14:00 99.1 73 18 128/80 (96) 96 Room Air I&O- Last 24 Hours up to 6 AM 08/11/19 06:00 Intake Total 4276.67 ml Output Total 400 ml Balance 3876.67 ml Frances eTrrell MD Aug 11, 2019 18:01
[2019-08-11 22:00] VITALS: BP 119/79
[2019-08-12 02:00] VITALS: BP 115/78
[2019-08-12] MEDS: ACETAMINOPHEN *IV* 1,000 MG in IV 1 EA IV SCH (03:00)
[2019-08-12 07:21] LABS: HEMATOCRIT 30.9 % (36.0-47.0); HEMOGLOBIN 10.8 g/dl (12.0-15.5); MEAN CORPUSCULAR HEMOGLOBIN 31.6 pg (27.0-33.0); MEAN CORPUSCULAR VOLUME 90.4 fl (80.0-96.0); PLATELET COUNT, AUTOMATED 354 10^3/uL (150-450); RED BLOOD COUNT 3.42 10^6/uL (4.00-5.40); WHITE BLOOD COUNT 9.3 10^3/uL (4.0-10.0)
[2019-08-12 07:51] LABS: ALT/SGPT 15 U/L (12-78); AMYLASE 202 U/L (25-115); BILIRUBIN,TOTAL 0.3 MG/DL (0.2-1.0); BLOOD UREA NITROGEN 5 MG/DL (7-18); CALCIUM LEVEL 8.1 MG/DL (8.5-10.1); CARBON DIOXIDE LEVEL 22 MEQ/L (21-32); CHLORIDE LEVEL 111 MEQ/L (98-107); CREATININE FOR GFR 0.46 MG/DL (0.55-1.30); GLOMERULAR FILTRATION RATE > 60.0 (>60); GLUCOSE, FASTING 97 MG/DL (70-100); LIPASE 1247 U/L (73-393); POTASSIUM SERUM 3.7 MEQ/L (3.5-5.1); SODIUM LEVEL 140 MEQ/L (136-145); TOTAL PROTEIN 5.2 GM/DL (6.4-8.2)
[2019-08-12 08:00] VITALS: BP 126/74
[2019-08-12] MEDS ORDERED: MORPHINE 10 MG/ML 1ML VIAL (J2270) SC ONE (09:00)
[2019-08-12] MEDS ORDERED: MIRALAX *UNIT DOSE* 17GM PACKET PO SCH (09:00)
[2019-08-12] MEDS ORDERED: MORPHINE 10 MG/ML 1ML VIAL (J2270) IV ONE (09:00)
[2019-08-12] MEDS ORDERED: METOCLOPRAMIDE 10 MG TAB PO PRN (09:15)
[2019-08-12] MEDS ORDERED: ACETAMINOPHEN 500 MG TAB PO PRN (09:15)
--- NOTE | 2019-08-12 10:36 | IPNPDOC ---
Text Note Date of Service The patient was seen on 08/12/19. NOTE The patient is a 23-year-old s/p PLTCD on 19OCT POD #6 admitted for pre sumed ileus HD #3. patient without concerns. She tolerated regular diet yesterday without problem. She is having BM and passing flatus. Urinating without problem. Pain controlled with IV acetaminophen alone. denies sweats/chills. Patient has f/u appoitment with her surgeon in [facility] in 3 day s. all: ibuprofen Vitals: reviewed, normal NAD, laying in bed cta s w/r/r S1S2 s m/g/c abd: nd, soft, nt, +BS, stables removed and incision site c/d/i without erythema LE: no erythema/edema/tenderness labs reviewed. a/p patient POD #6, HD #3 with ileus, resolved. lipase trended upward. patient without epigastric pain and is tolerating PO without problem. No concern for acute pancreatitis at this time. Discussed with patient regarding s/s of pancreatitis. Discussed s/s to f/u sooner than scheduled appointment. patient expresses understanding. d/c home today. DO Bri VS,Erice, I+O VS, Fishbone, I+O Laboratory Tests 08/12/19 07:08 Vital Signs Date Time Temp Pulse Resp B/P (MAP) Pulse Ox O2 Delivery O2 Flow Rate FiO2 08/12/19 08:00 97.9 77 18 126/74 (91) 99 Room Air I&O- Last 24 Hours up to 6 AM 08/12/19 06:00 Intake Total 780 ml Output Total 1600 ml Balance -820 ml CHRISTOPHER PARISI DO Aug 12, 2019 10:36
--- NOTE | 2019-08-12 10:47 | OBDS ---
[facility] Obstetrical Discharge Sum. Obstetrical Discharge Summary Bulb Grader/Provider: CHRISTOPHER PARISI DO Date: Aug 12, 2019 : 2 Term: 2 Pre-term: 0 Abortions: 0 Livin A/P, Post Course List any complications Admission diagnosis: Post op ileus status post delivery Discharge diagnosis: status post delivery Condition at Discharge: stable Discharge Instructions: Home Activity: as tolerated Diet:regular Medications: continue with home meds Follow-up: with [facility] in [place] as scheduled Patient admitted at post operative day #4 for ileus. She was hydrated and kept NPO overnight. She was given rectal enema. Her ileus resolved and was able to have BM on HD #2. Now tolerating regular diet without abdominal pain. She meets discharge criteria on HD #3. CHRISTOPHER PARISI DO Aug 12, 2019 10:47
== END 2019-08-12 11:25 | disposition home or self-care (01) | DRG 776 ==
LOC: M ED 12:01 → M ED INP 14:51 → M MSPAV 17:20 → M PED 08-12 00:55
PROVIDERS: ADMIT Obstetrics & Gynecology; ATTEND Obstetrics & Gynecology
DX: O99.63 Diseases of the digestive system complicating the puerperium (principal); K91.89 Other postprocedural complications and disorders of digestive system; K56.7 Ileus, unspecified